=== PATIENT | male | born 1985 | race Caucasian/White ===

== ENCOUNTER 2018-02-16 10:43 | Emergency (ER) | payer MEDICAID ==
[~2018-02-16] VITALS: Ht 175.3 cm; Wt 72.6 kg
[2018-02-16 11:11] VITALS: BP 135/78
[2018-02-16] MEDS ORDERED: Ketorolac 30mg Inj IV ONE (11:30)
[2018-02-16] MEDS ORDERED: DiphenhydrAMINE 50mg/ml Inj IVP ONE (11:30)
[2018-02-16 11:58] LABS: BASOPHILS % (AUTO) 0.7 % (0.0-2.0); EOSINOPHILS % (AUTO) 5.6 % (0.0-3.0); HEMATOCRIT 38.9 % (42.0-52.0); HEMOGLOBIN 13.9 G/DL (14.2-18.0); LYMPHOCYTES % (AUTO) 26.4 % (20.0-45.0); MEAN CORPUSCULAR VOLUME 89 FL (80-99); MONOCYTES % (AUTO) 6.5 % (1.0-10.0); NEUTROPHILS % (AUTO) 60.7 % (45.0-75.0); PLATELET COUNT 173 K/UL (150-450); RED BLOOD COUNT 4.39 M/UL (4.70-6.10); RED CELL DISTRIBUTION WIDTH 10.7 % (11.6-14.8); WHITE BLOOD COUNT 8.3 K/UL (4.8-10.8)
[2018-02-16 12:01] LABS: BILIRUBIN, URINE NEGATIVE (NEGATIVE); COLOR,URINE PALE YELLOW; GLUCOSE, URINE (UA) NEGATIVE (NEGATIVE); KETONES,URINE NEGATIVE (NEGATIVE); LEUKOCYTE ESTERASE ,URINE 1+ (NEGATIVE); NITRITE,URINE NEGATIVE (NEGATIVE); PH,URINE 8 (4.5-8.0); PROTEIN,URINE NEGATIVE (NEGATIVE); UROBILINOGEN,URINE NORMAL MG/DL (0.0-1.0)
[2018-02-16 12:03] LABS: APPEARANCE,URINE SLIGHTLY CLOUDY
[2018-02-16 12:18] LABS: ANION GAP 8 mmol/L (5-15); BLOOD UREA NITROGEN 12 mg/dL (7-18); CALCIUM 8.5 MG/DL (8.5-10.1); CARBON DIOXIDE 26 MMOL/L (21-32); CHLORIDE 105 MMOL/L (98-107); CREATININE 0.8 MG/DL (0.55-1.30); SODIUM 139 MMOL/L (136-145)
[2018-02-16 12:30] LABS: ALANINE AMINOTRANSFERASE 17 U/L (12-78); ALBUMIN 3.3 G/DL (3.4-5.0); ALKALINE PHOSPHATASE 70 U/L (46-116); ASPARTATE AMINO TRANSFERASE 12 U/L (15-37); BILIRUBIN,TOTAL 0.3 MG/DL (0.2-1.0); CREATINE KINASE 40 U/L (26-308)
[2018-02-16 13:21] VITALS: BP 128/75
[2018-02-16 15:34] VITALS: BP 128/70
--- NOTE | 2018-02-16 16:25 | Emergency Room Report ---
History of Present Illness General Chief Complaint: Suicidal Source: Patient Present Illness HPI Patient presents with suicidal ideation. His plan is to hang himself. He hasn' t chosen a specific place or how to do this. He's depressed because he has been abusing heroin. He lost his job 2 weeks ago because of this. He was admitted at that time to [facility] for suicidal ideation. He denies being treated with medication at this time. He's been admitted several times for suicidal ideation. He denies having a diagnosis of schizophrenia or major depression. The patient states that occasionally he had been treated there with Seroquel to help him sleep. Denies hearing voices at this time. The patient's been using 1 g of heroin a day IV. He feels that he is taking at this time and like there is glass in all his joints. He also complains about nausea and some abdominal cramping. The patient denies other drug use at this time. The patient denies fevers, chills, HIV, hepatitis C, diarrhea, dysuria, change in vision. 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 Reviewed Nursing Documentation: PMH: Agreed; PSxH: Agreed Nursing Documentation-PMH Past Medical History: No Stated History Review of Systems All Other Systems: negative except mentioned in HPI Physical Exam Vital Signs Date Time Temp Pulse Resp B/P (MAP) Pulse Ox O2 Delivery O2 Flow Rate FiO2 02/16/18 11:01 98.7 80 17 135/78 98 Room Air 98.8 Sp02 EP Interpretation: reviewed, normal General Appearance: well appearing, no apparent distress, GCS 15 Head: normocephalic Eyes: bilateral eye normal inspection, bilateral eye PERRL, bilateral eye other - slightly dilated pupils ENT: moist mucus membranes Neck: supple Respiratory: lungs clear, normal breath sounds Cardiovascular #1: regular rate, rhythm Cardiovascular #2: 2+ radial (R) Gastrointestinal: normal inspection, normal bowel sounds, non tender, no mass, non-distended Musculoskeletal: back normal, gait/station normal, normal range of motion Neurologic: alert, oriented x3, grossly normal Psychiatric: depressed affect Suicide Risk Assessment: Suicidal Ideation: Yes Had intent to initiate attempt: Yes Pt's plan for suicide attempt: Yes Has means to complete attempt: Yes Skin: normal inspection, warm/dry Medical Decision Making Diagnostic Impression: Primary Impression: Suicidal ideation Additional Impressions: Heroin abuse Cocaine abuse Heroin withdrawal Dual diagnosis ER Course Patient presents with suicidal ideation with a plan. He also is withdrawing from heroin. Differential includes exacerbation of major depression, suicide risk, heroine withdrawal, other possible toxic substance withdrawal, electrolyte abnormalities amongst others. Evaluation will be with EKG and labs. The patient will be treated with Zofran, and other non-opiate medications to help with withdrawal symptoms. EKG shows no injury with an incomplete right bundle-branch block and labs are essentially normal except for tox screen positive for opiates THC and cocaine. The patient is improved with medical treatment however still is suicidal. The patient is medically clear. Patient voluntary. Discussed that if he tried to leave that I would place medical hold. Patient requests something to help sleep. Seroquel given. Nicotine patch ordered. Signed out to Dr. Watson. Laboratory Tests Test 02/16/18 11:36 White Blood Count 8.3 K/UL (4.8-10.8) Red Blood Count 4.39 M/UL (4.70-6.10) L Hemoglobin 13.9 G/DL (14.2-18.0) L Hematocrit 38.9 % (42.0-52.0) L Mean Corpuscular Volume 89 FL (80-99) Mean Corpuscular Hemoglobin 31.7 PG (27.0-31.0) H Mean Corpuscular Hemoglobin Concent 35.8 G/DL (32.0-36.0) Red Cell Distribution Width 10.7 % (11.6-14.8) L Platelet Count 173 K/UL (150-450) Mean Platelet Volume 6.5 FL (6.5-10.1) Neutrophils (%) (Auto) 60.7 % (45.0-75.0) Lymphocytes (%) (Auto) 26.4 % (20.0-45.0) Monocytes (%) (Auto) 6.5 % (1.0-10.0) Eosinophils (%) (Auto) 5.6 % (0.0-3.0) H Basophils (%) (Auto) 0.7 % (0.0-2.0) Urine Color Pale yellow Urine Appearance Slightly cloudy Urine pH 8 (4.5-8.0) Urine Specific Dorothy 1.015 (1.005-1.035) Urine Protein Negative (NEGATIVE) Urine Glucose (UA) Negative (NEGATIVE) Urine Ketones Negative (NEGATIVE) Urine Occult Blood Negative (NEGATIVE) Urine Nitrite Negative (NEGATIVE) Urine Bilirubin Negative (NEGATIVE) Urine Urobilinogen Normal MG/DL (0.0-1.0) Urine Leukocyte Esterase 1+ (NEGATIVE) H Urine RBC 0-2 /HPF (0 - 0) H Urine WBC 0-2 /HPF (0 - 0) Urine Squamous Epithelial Cells Occasional /LPF Urine Bacteria Few /HPF (NONE) Sodium Level 139 MMOL/L (136-145) Potassium Level 4.0 MMOL/L (3.5-5.1) Chloride Level 105 MMOL/L (98-107) Carbon Dioxide Level 26 MMOL/L (21-32) Anion Gap 8 mmol/L (5-15) Blood Urea Nitrogen 12 mg/dL (7-18) Creatinine 0.8 MG/DL (0.55-1.30) Estimate Glomerular Filtration Rate > 60 mL/min (>60) Glucose Level 109 MG/DL (74-106) H Calcium Level 8.5 MG/DL (8.5-10.1) Total Bilirubin 0.3 MG/DL (0.2-1.0) Aspartate Amino Transferase (AST) 12 U/L (15-37) L Alanine Aminotransferase (ALT) 17 U/L (12-78) Alkaline Phosphatase 70 U/L (46-116) Total Creatine Kinase 40 U/L (26-308) Total Protein 6.6 G/DL (6.4-8.2) Albumin 3.3 G/DL (3.4-5.0) L Globulin 3.3 g/dL Albumin/Globulin Ratio 1.0 (1.0-2.7) Salicylates Level 3.7 ug/mL (2.8-20) Urine Opiates Screen Positive (NEGATIVE) H Acetaminophen Level < 2 MCG/ML (10-30) L Urine Barbiturates Screen Negative (NEGATIVE) Phencyclidine (PCP) Screen Negative (NEGATIVE) Urine Amphetamines Screen Negative (NEGATIVE) Urine Benzodiazepines Screen Negative (NEGATIVE) Urine Cocaine Screen Positive (NEGATIVE) H Urine Marijuana (THC) Screen Positive (NEGATIVE) H Serum Alcohol < 3 mg/dL EKG Diagnostic Results Rate: normal Rhythm: NSR ST Segments: no acute changes - R axis Rhythm Strip Diag. Results EP Interpretation: yes Rhythm: NSR, no PVC's, no ectopy Last Vital Signs Date Time Temp Pulse Resp B/P (MAP) Pulse Ox O2 Delivery O2 Flow Rate FiO2 02/16/18 21:40 98.6 62 16 125/77 99 Room Air 98.6 Status: improved Disposition: [facility]FER [facility] H[facility] Condition: Serious - but stable for transfer Scripts No Active Prescriptions or Reported Meds Referrals: NOT CHOSEN IPA/,REFERRING (PCP) Bakari Anderson M.D. Feb 16, 2018 16:25
[2018-02-16 17:42] VITALS: BP 121/72
[2018-02-16 21:21] VITALS: BP 125/77
[2018-02-16 21:40] VITALS: BP 125/77
== END 2018-02-16 21:45 ==
LOC: EMR 12:02
DX: R45.851 Suicidal ideations (principal); F14.10 Cocaine abuse, uncomplicated; F11.23 Opioid dependence with withdrawal
CPT/HCPCS: 36415; 80053; 80307; 80329; 81003; 82550; 85025; 93005; 96374; 96375; 99285; J1200; J1885; J2405